=== PATIENT | female | born 1990 | race Asian ===

== ENCOUNTER 2021-04-21 21:19 | Emergency (ER) | payer OTHER ==
[~2021-04-21] VITALS: Ht 160 cm; Wt 86.4 kg
[2021-04-21] MEDS ORDERED: SERTRALINE HCL 100 MG TABLET PO ONE (22:30)
[2021-04-21] MEDS ORDERED: SERT-162 PO (22:36)
[2021-04-21 22:44] VITALS: BP 128/79
== END 2021-04-21 22:49 | disposition home or self-care (01) ==
LOC: EMS 21:22
DX: F32.9 Major depressive disorder, single episode, unspecified (principal); Z76.0 Encounter for issue of repeat prescription
CPT/HCPCS: 99283